=== PATIENT | female | born 1960 | race Caucasian/White ===

== ENCOUNTER 2018-09-11 16:15 | Emergency (ER) | payer BC ==
--- OUTSIDE RECORDS SUMMARY | 2018-09-11 16:26 | XMS REPORT ---
:1960 External Reference #:[id number] Author Organization [facility] 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 Active Onset: 10/02/2011 Tobacco user Rogelio Holloway RPAC Active Onset: 10/02/2011 Gastroesophageal reflux disease Rogelio Holloway RPAC Active Onset: 10/02/2011 Benign essential hypertension Rogelio Holloway RPAC Active Onset: 11/14/2014 Degenerative joint disease involving Rogelio Holloway RPAC Active multiple joints Note: lumbar, TMJ, knees,hands Onset: 10/02/2011 Hypothyroidism Rogelio Holloway RPAC Active Onset: 06/08/2015 Vitamin D deficiency Rogelio Holloway RPAC Active Onset: 11/07/2016 Hypokalemia Rogelio Holloway RPAC Active Note: noted 2014 Onset: 01/12/2018 Inflammatory polyarthropathy Rogelio Holloway RPAC Active Note: tx started 01/2018 Onset: 05/06/2018 Palpitations Rogelio Holloway RPAC Active Note: PVCs/PACs on holter Onset: 05/06/2018 Substance abuse counseling Rogelio Holloway RPAC Active Onset: 05/06/2018 Chronic obstructive pulmonary Rogelio Holloway RPAC Active disease w (acute) exacerbation Onset: 03/09/2018 Eustachian tube disorder Rogelio Holloway RPAC Inactive Inactive: 05/09/2018 Onset: 04/02/2018 Tachycardia Rogelio Holloway RPAC Inactive Inactive: 05/09/2018 Onset: 01/16/2018 Acute sinusitis Td Salguero M.D. 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 Cigarette Use Patient is a current cigarette 1/2 ppd, has purchased smoker, smokes every day e-cigarette 08/2017 ETOH Use Denies alcohol use Smoking Patient is a current smoker, smokes every day Recreational Drug Use Denies Drug Use Daily Caffeine Consumes on average 3 sodas approx 3 cans per day Exercise Type/Frequency Exercises regularly walks all day Allergies, Adverse Reactions, Alerts Date Description Reaction Status Severity Comments 01/26/2017 Morphine active 10/02/2011 Cipro Nausea & Palpitations, Ok For active Levaquin 10/02/2011 Doxycycline Vomiting active 10/02/2011 Spiriva Laryngitis active 10/02/2011 Tramadol Nausea/Light-Head active 06/05/2015 Xyzal FATIGUE/SLEEPY active Medications Medication Date Status Form Strength Qnty SIG Indications Ordering Provider Pataday 08/24 Active Solution 0.2% 2.500 1 drop both H10.9 Vasquez, /2018 ml eyes every Francisco, day M.D. Amoxicillin/Cla 08/24 Active Tablets 875-125mg 20tab take 1 R05 jackie Vasquez /2017 s tablet every Francisco, Potassium 12 hours for M.D. 10 days Guaifenesin-Cod 08/24 Active Solution 100-10mg/ 420un 10 mL PO Q 4 R05 triny Vasquez 5ML its hours prn Francisco, severe cough M.D. Breo Ellipta 05/06 Active Aerosol 200-25mcg 84uni 1 inhalation J44.1 Pedro /2017 /Inh ts every day Francisco, M.D. Verapamil HCL 04/08 Active Caps ER 120mg 90cap 1 cap by Pedro, 24HR s mouth every , day,increase M.D. d to bid 08/24/18 Klor-Con M10 02/11 Active Tablets ER 10Meq 180ta 2 tabs by Pedro, bs mouth every Francisco, day M.D. Ventolin HFA 03/06 Active Aerosol 108(90Bas 54uni 1-2 Puffs Pedro, e) ts Every 4-6 Francisco, mcg/Act Hours as M.D. Needed Zafirlukast 12/25 Active Tablets 20mg 180ta take one J45.41 Pedro, bs tablet by Francisco, mouth twice M.D. a day Theophylline ER 07/04 Active Tablets ER 300mg 180ta 1 Take By Pedro, 12HR bs Mouth Tablet Francisco, Two Times A M.D. Day Albuterol 04/08 Active Nebulizer (2.5mg/3M 250un Use 1 Vial Cecilia Vasquez L) 0.083% its (3 ML) Via Francisco, Nebulizer M.D. Every 4 Hours as Needed For Shortness Of Breath, Wheezing Levothyroxine 08/19 Active Tablets 88mcg 90tab Take One Aurelia Vasquez s Tablet By Francisco, Mouth Once M.D. Daily Ibuprofen 00 Active Tablets 800mg 1 by mouth Unknown /0000 three times a day after meals as needed Nexium 24HR 00/[address] 20mg 1 PO Daily Unknown /0000 Amoxicillin/Cla 05/06 Hx Tablets 875-125mg 60tab 1 tab by J01.90 luana Vasquez s mouth every Francisco, Potassium - 12 hours M.D. 06/05 with food /2017 Prednisone 03/11 Hx Tablets 10mg 78tab 6 tabs po X J44.1 Pedro, s 3days, 5 Francisco, - tabs poX M.D. 03/26 3days, tabs poX 3days, 3 tabs poX 5days, 2 tabs poX 5days, 1 tab po X 5days, 1/2 tab q-o-d Amoxicillin/Cla 03/09 Hx Tablets 875-125mg 20tab take 1 J44.0 luana Vasquez s tablet every Francisco, Potassium - 12 hours for M.D. 03/20 Work Note 03/09 Hx evaluated at J44.0 Vasquez primary care [facility], - on 03/09/18 M.D. 03/26 for acute /2017 illness. please excuse until 03/16/18 Amoxicillin/Cla 01/16 Hx Tablets 875-125mg 20tab take 1 J01.90 jackie Salguero s tablet every Andras, Potassium - 12 hours for M.D. 01/28 Methotrexate 01/12 Hx Tablets 2.5mg 4 tabs by Niru mouth every Marques fletcher MD 03/09 Folic Acid 01/12 Hx Tablets 1mg 1 by mouth Niru every day Marques Dawkins MD 03/09 Augmentin 10/16 Hx Tablets 875-125mg 20tab one tab by J06.9 Pedro s mouth every Francisco, 12 hours M.D. with food Prednisone 10/16 Hx Tablets 20mg 10tab take 2 J06.9 Pedro s tablets Francisco, daily for 5 M.D. days. Amoxicillin/Cla 08/21 Hx Tablets 875-125mg 60tab 1 tab by J32.9 jackie Vasquez s mouth every Francisco, Potassium 12 hours M.D. with food Prednisone 08/11 Hx Tablets 20mg 10tab take 2 Allegra s tablets MD Dmitriy daily for 5 days. Clarithromycin 07/17 Hx Tablets 500mg 20tab 1 tab by J44.0 [facility], s mouth twice Francisco, - a day M.D. 07/28 Prednisone 07/17 Hx Tablets 10mg 78tab 6 tabs po X J44.0 Vasquez, s 3days, 5 Francisco, - tabs poX M.D. 08/10 3days, tabs poX 3days, 3 tabs poX 5days, 2 tabs poX 5days, 1 tab po X 5days, 1/2 tab q-o-d Terbinafine HCL 07/17 Hx Tablets 250mg 90tab 1 tab by B35.1 Vasquez, s mouth every Francisco, - day M.D. 10/17 Work Note 07/17 Hx Evaluated at [facility], [facility] - on 07/17/17 M.D. 08/21 for acute /2017 illness. Return to work 07/21/17 Klor-Con 05/12 Hx Tablets ER 8Meq 90tab 1 by mouth Vasquez, s every day Francisco, - M.D. 05/12 Klor-Con M20 05/12 Hx Tablets ER 20Meq 30tab 1 by mouth [facility], s every day Francisco, - M.D. 07/17 Clotrimazole 03/19 Hx Lozenges 10mg 70uni 1 cristian by B37.9 Vasquez, ts mouth every Francisco, - 4 hours M.D. 07/17 Prednisone 03/19 Hx Tablets 10mg 78tab 6 tabs po X J44.1 Vasquez, s 3days, Francisco, - tabs poX M.D. 05/12 3days, tabs poX 3days, 3 tabs poX 5days, 2 tabs poX 5days, 1 tab po X 5days, 1/2 tab q-o-d Clarithromycin 03/06 Hx Tablets 500mg 60tab 1 tab by J01.90 Vasquez s mouth twice Francisco, - a day M.D. 05/12 Work Note 03/06 Hx Evaluated at [facility], [facility] - on 03/06/17 M.D. 03/19 for acute /2017 illness. Please excuse till 03/10/17 Cephalexin 01/14 Hx Tablets 500mg 30tab 1 tab (or J01.90 Pedro, s cap) by isaura Singh three M.D. times a day Work Note 01/14 Hx Evaluated on J01. Pedro01/14/17 at [facility] M.D. for acute illness. Please excuse till 01/18/17. Amlodipine 12/31 Hx Tablets 2.5mg 100ta 2 tabs by I10 Pedro, Bes bs mouth every Francisco, - day M.D. 04/02 Levaquin 12/31 Hx Tablets 500mg 10tab 1 by mouth J44.1 Pedro, s every day Francisco, - M.D. 01/20 Prednisone 11/27 Hx Tablets 10mg 78tab 6 tabs po X 493.92 Silvio s 3days, 5 Larry Lemon, tabs poX DO 3days, 4 tabs poX 3days, 3 tabs poX 5days, 2 tabs poX 5days, 1 tab po X 5days, 1/2 tab q-o-d Augmentin 11/27 Hx Tablets 875-125mg 20tab 1 by mouth Silvio s twice a day Larry Lemon, x 10 days DO Acidophilus 11/27 Hx Capsules 90cap 1 by mouth J01.90 Silvio Extra Strength s every day x Larry Lemon, 10 days DO Guaifenesin-Cod 11/27 Hx Solution 100-10mg/ 3000m 10 mL PO Q 4 J01.90 triny Anguianone /2015 5ML l hours prn Larry Lemon, DO Klor-Con 09/23 Hx Tablets ER 8Meq 90tab 1 by mouth Silvio s every day Larry Lemon, DO Bupropion HCL 07/01 Hx Tablets ER 100mg 60tab 1 tab by Silvio, ER (SR) 12HR s mouth taylor Lemon, - morning, DO 12/31 increase to twice a day in 2 wks on quit date Advair Diskus 07/01 Hx Aerosol 500-50mcg 180un 1 Inhalation Pedro, /Dose its Twice A Day Mariza Singh M.D. 05/13 Prednisone 06/13 Hx Tablets 10mg 35tab 4 tabs po x J20.9 Silvio s 3 days, 3 Larry E., - tabs po x 3 DO 07/01 days, 2 tabs /2015 po x 3 days, 1 tab po x 3 days, then 1 tab po qod Budesonide 06/05 Hx Suspension 0.5mg/2ML 60ml 1 unit dose Silvio via Larry ETrav, - nebulizer DO 06/28 twice a day /2015 Biaxin 06/04 Hx Tablets 500mg 20tab 1 tab by J20.9 Silvio s mouth twice Larry E., - a day DO 06/16 Prednisone 06/04 Hx Tablets 20mg 10tab 2 tabs by J20.9 Silvio s mouth every Larry E., - day with DO 06/13 Work Note 06/04 Hx Evaluated at J45.901 [facility] Larry Lemon, - on 06/04/16 DO 06/28 for asthma /2016 exacerbation . Please excuse from work today and tomorrow. Biaxin 04/04 Hx Tablets 500mg 20tab 1 tab by J45.41 s mouth twice Larry ETrav, - a day DO 06/04 Prednisone 04/04 Hx Tablets 20mg 10tab 2 tabs by J45.41 s mouth every Larry E., - day with DO 06/04 Work Note 04/04 Hx Evaluated at [facility] Larry Lemon, - on 04/04/16 DO 06/28 for acute /2016 illness. Please excuse till 04/08/16. Stiolto 02/28 Hx Aerosol 2.5-2.5mc 4gm 2 J45.40 Silvio Respimat g/Act inhalations Larry Lemon, - daily DO 07/01 Asmanex HFA 02/28 Hx Aerosol 200mcg/Ac 13gm 1-2 J45.40 Silvio t inhalations Larry Lemon, - twice a day DO 06/13 Meloxicam 02/28 Hx Tablets 15mg 100ta 1 tab by M25.519 Silvio, bs mouth every Larry Lemon, - day with DO 12/31 food for /2016 shoulder pain Prednisone 12/25 Hx Tablets 10mg 21tab 3 tabs for 3 J45.41 Silvio, s days, 2 tabs Larry Lemon, - for 3 days, DO 02/28 1 tab for days then 1/2 tab po every other day till finished Cephalexin 12/25 Hx Capsules 500mg 30cap 1 cap ( or J45.41 Silvio s tab) by Larry Lemon, - mouth three DO 02/28 times a day /2015 Work Note 12/25 Hx Evaluated at J45.41 [facility] Larry Lemon, - for asthma DO 03/01 exacerbation /cough. Please excuse from work till 01/01/2016 Prednisone 12/24 Hx Tablets 20mg Started with 60mg - 12/24/15, 02/28 tapered per ER Clotrimazole 10/02 Hx Lozenges 10mg 70uni 1 by mouth B37.9 Silvio ts every 4 Larry Lemon, - hours (5 per DO 12/27 day) Biaxin 10/02 Hx Tablets 500mg 20tab 1 tab by J01.90 Silvio, s mouth twice Larry Lemon, - a day DO 12/25 Cheratussin ac 10/02 Hx Syrup 100-10mg/ 8oz 1-2 R05 Silvio, 5ML teaspoons by Larry Lemon, - mouth every DO 12/25 4 hour as needed cough Omeprazole 08/[address] 20mg 90cap 1 by mouth Pedro, s every day Tori Singh Prednisone 08/09 Hx Tablets 10mg 78tab 6 tabs po X 493.92 Silvio s 3days, 5 Larry Lemon, - tabs poX DO 10/01 3days, tabs poX 3days, 3 tabs poX 5days, 2 tabs poX 5days, 1 tab po X 5days, 1/2 tab q-o-d Work Note 08/09 Hx Evaluated 269.1 Silvio today for Larry Lemon, - acute DO 12/25 exacerbation of asthma. Please excuse through 08/11/15 Montelukast 08/02 Hx Tablets 10mg 90tab 1 tab by J45.41 Silvio Sodium s mouth every Larry ETrav, - day DO 12/25 Verapamil HCL 08/02 Hx Caps ER 120mg 90cap take one I10 Vasquez, 24HR s capsule by Francisco, - mouth every M.D. Klor-Con M10 06/13 Hx Tablets ER 10Meq 14tab 1 tab by Silvio /2014 s mouth every Larry ETrav, - day DO 08/09 Vitamin D 06/13 Hx Capsules 53829Dynt 12cap 1 cap by Silvio, (Ergocalciferol /2014 s mouth every Larry ETrav, ) - week DO 04/04 Proair HFA 06/05 Hx Aerosol 108(90Bas 8.500 1-2 Silvio e) gm inhalations Larry Lemon, - mcg/Act every 4 DO 03/06 hours as needed Nabumetone 06/05 Hx Tablets 750mg 60tab take 2 719.48 Silvio, /2014 s tablets by Larry Lemon, - mouth every DO 06/19 evening with food for joint pain Advair Diskus 05/29 Hx Aerosol 500-50mcg 60uni 1 inhalation Silvio /Dose ts twice a day Larry Lemon, - DO 03/01 Nasonex 05/26 Hx Suspension 50mcg/Act 2 sprays to (b) nares - every day 12/25 Xyzal 04/25 Hx Tablets 5mg 1 tab by Unknown mouth every - day as 06/05 needed allergies Dulera 04/25 Hx Aerosol 200-5mcg/ 2 puff twice Unknown Act a day - 06/05 Proair 04/25 Hx Aerosol 108(90Bas 2 Unknown Respicl e) inhalations - mcg/Act q 4-6 hrs 06/05 prn /2014 Esomeprazole 01/[address] 20mg 1 by mouth Jo Ann, Magnesium /2014 every day Tammy Dawkins MD 08/09 Benazepril HCL 09/20 Hx Tablets 10mg 90tab 1 tab by Jo Ann s mouth every Tammy - day , 06/05 Ventolin HFA 09/20 Hx Aerosol 108mcg/Ac 8.5un Inhale One Jo Ann t its To Two Puffs Tammy - By Mouth , 05/02 Every Hours as Needed Montelukast 09/06 Hx Tablets 10mg 30tab take one Jo Ann s tablet by Tammy - mouth every , Ipratropium 11/19 Hx Solution 0.02% 150un one unit via Jo Ann, its nebulizer Tammy - four times a , 06/05 day prn Advair Diskus 10/16 Hx Aerosol 500/50 60uni 1 inhalation Jo Ann ts twice a day Tammy - as needed , 05/02 Verapamil HCL 09/11 Hx Caps ER 120mg 30cap take one Silvio 24HR s capsule by Larry Lemon - mouth every DO Predisone 00 Hx Tab 60mg, then Unknown /0000 40mg qd - 12/25 Immunizations CPT Code Status Date Vaccine Lot # [id number] Given 09/01/2009 Pneumovax Injection 28586 Given 11/08/2003 flu vaccination 45807 Given 08/30/2003 MMR Vaccine, Live, For Subcutaneous Use 88646 Given 07/27/2003 MMR Vaccine, Live, For Subcutaneous Use 11235 Given 06/21/2003 Tetnus Injection Vital Signs Date Vital Result Comment 08/24/2018 BP Systolic 150 mmHg BP Diastolic 98 mmHg Body Temperature 98.5 F Heart Rate 102 /min Respiratory Rate 18 /min Height 65 inches 5'5" Weight 224.12 lb BMI (Body Mass Index) 37.3 kg/m2 BSA (Body Surface Area) 2.08 m2 [place] body weight in kilograms 57 O2 % BldC Oximetry 91 % 05/06/2018 BP Systolic Sitting Left Arm 132 mmHg BP Diastolic Sitting Left Arm 82 mmHg Body Temperature 99.5 F Heart Rate 96 /min Respiratory Rate 24 /min Height 65 inches 5'5" Weight 220.00 lb BMI (Body Mass Index) 36.6 kg/m2 BSA (Body Surface Area) 2.06 m2 [place] body weight in kilograms 57 O2 % BldC Oximetry 98 % ra 04/02/2018 BP Systolic Sitting Left Arm 126 mmHg BP Diastolic Sitting Left Arm 80 mmHg Heart Rate 108 /min rapid Respiratory Rate 18 /min Height 65 inches 5'5" Weight 213.00 lb BMI (Body Mass Index) 35.4 kg/m2 BSA (Body Surface Area) 2.03 m2 [place] body weight in kilograms 57 O2 % BldC Oximetry 95 % ra 03/09/2018 BP Systolic Sitting Left Arm 147 mmHg BP Diastolic Sitting Left Arm 89 mmHg Body Temperature 100.2 F Heart Rate 110 /min Respiratory Rate 20 /min Height 65 inches 5'5" Weight 217.00 lb BMI (Body Mass Index) 36.1 kg/m2 BSA (Body Surface Area) 2.05 m2 [place] body weight in kilograms 57 O2 % BldC Oximetry 93 % 01/16/2018 BP Systolic Sitting Left Arm 118 mmHg BP Diastolic Sitting Left Arm 62 mmHg Body Temperature 99.4 F Heart Rate 110 /min Height 65 inches 5'5" [place] body weight in kilograms 57 O2 % BldC Oximetry 94 % 12/22/2017 BP Systolic Sitting Right Arm 146 mmHg BP Diastolic Sitting Right Arm 89 mmHg Heart Rate 105 /min Respiratory Rate 24 /min Height 65 inches 5'5" Weight 227.00 lb BMI (Body Mass Index) 37.8 kg/m2 BSA (Body Surface Area) 2.09 m2 [place] body weight in kilograms 57 11/17/2017 BP Systolic Sitting Left Arm 140 mmHg BP Diastolic Sitting Left Arm 86 mmHg Heart Rate 120 /min Respiratory Rate 18 /min Weight 230.00 lb O2 % BldC Oximetry 93 % 10/16/2017 BP Systolic Sitting Right Arm 120 mmHg BP Diastolic Sitting Right Arm 82 mmHg Heart Rate 105 /min Respiratory Rate 24 /min Height 65 inches 5'5" Weight 224.00 lb BMI (Body Mass Index) 37.3 kg/m2 BSA (Body Surface Area) 2.08 m2 [place] body weight in kilograms 57 O2 % BldC Oximetry 95 % ra 08/21/2017 BP Systolic Sitting Right Arm 122 mmHg BP Diastolic Sitting Right Arm 80 mmHg Body Temperature 98.1 F Heart Rate 97 /min Height 65 inches 5'5" Weight 226.00 lb BMI (Body Mass Index) 37.6 kg/m2 BSA (Body Surface Area) 2.08 m2 [place] body weight in kilograms 57 O2 % BldC Oximetry 95 % 07/17/2017 BP Systolic 114 mmHg BP Diastolic 74 mmHg Body Temperature 98.0 F Heart Rate 105 /min Respiratory Rate 12 /min Height 65 inches 5'5" Weight 215.00 lb BMI (Body Mass Index) 35.8 kg/m2 BSA (Body Surface Area) 2.04 m2 [place] body weight in kilograms 57 O2 % BldC Oximetry 90 % 05/13/2017 BP Systolic Sitting Right Arm 120 mmHg BP Diastolic Sitting Right Arm 86 mmHg Heart Rate 109 /min Respiratory Rate 16 /min Height 65 inches 5'5" Weight 223.00 lb BMI (Body Mass Index) 37.1 kg/m2 BSA (Body Surface Area) 2.07 m2 [place] body weight in kilograms 57 O2 % BldC Oximetry 94 % 03/25/2017 BP Systolic Sitting Left Arm 144 mmHg BP Diastolic Sitting Left Arm 92 mmHg Heart Rate 96 /min Respiratory Rate 17 /min Height 65 inches 5'5" Weight 218.00 lb BMI (Body Mass Index) 36.3 kg/m2 BSA (Body Surface Area) 2.05 m2 O2 % BldC Oximetry 95 % Room Air 03/19/2017 BP Systolic Sitting Right Arm 132 mmHg BP Diastolic Sitting Right Arm 80 mmHg Heart Rate 102 /min Height 65 inches 5'5" Weight 222.38 lb BMI (Body Mass Index) 37.0 kg/m2 BSA (Body Surface Area) 2.07 m2 O2 % BldC Oximetry 95 % 03/06/2017 BP Systolic 133 mmHg BP Diastolic 71 mmHg Body Temperature 98.3 F Heart Rate 94 /min Height 65 inches 5'5" Weight 225.00 lb BMI (Body Mass Index) 37.4 kg/m2 BSA (Body Surface Area) 2.08 m2 O2 % BldC Oximetry 95 % 01/14/2017 BP Systolic 158 mmHg BP Diastolic 78 mmHg Body Temperature 98.2 F Heart Rate 95 /min Respiratory Rate 20 /min Height 65 inches 5'5" Weight 224.38 lb BMI (Body Mass Index) 37.3 kg/m2 BSA (Body Surface Area) 2.08 m2 O2 % BldC Oximetry 97 % 12/31/2016 BP Systolic 156 mmHg BP Diastolic 90 mmHg Body Temperature 98.4 F Heart Rate 104 /min Height 65 inches 5'5" Weight 225.00 lb BMI (Body Mass Index) 37.4 kg/m2 BSA (Body Surface Area) 2.08 m2 11/27/2016 BP Systolic 110 mmHg BP Diastolic 76 mmHg Body Temperature 98.6 F Heart Rate 99 /min Height 65 inches 5'5" Weight 223.00 lb BMI (Body Mass Index) 37.1 kg/m2 BSA (Body Surface Area) 2.07 m2 O2 % BldC Oximetry 96 % 06/04/2016 BP Systolic Sitting Right Arm 144 mmHg BP Diastolic Sitting Right Arm 90 mmHg Body Temperature 99.1 F Heart Rate 64 /min Height 65 inches 5'5" Weight 227.00 lb BMI (Body Mass Index) 37.8 kg/m2 BSA (Body Surface Area) 2.09 m2 O2 % BldC Oximetry 97 % 04/04/2016 BP Systolic 128 mmHg BP Diastolic 78 mmHg Body Temperature 98.2 F Respiratory Rate 102 /min Height 65 inches 5'5" Weight 225.00 lb BMI (Body Mass Index) 37.4 kg/m2 BSA (Body Surface Area) 2.08 m2 O2 % BldC Oximetry 95 % 02/29/2016 BP Systolic 142 mmHg BP Diastolic 98 mmHg Heart Rate 101 /min Height 65 inches 5'5" Weight 222.00 lb BMI (Body Mass Index) 36.9 kg/m2 BSA (Body Surface Area) 2.07 m2 12/25/2015 BP Systolic Sitting Left Arm 132 mmHg BP Diastolic Sitting Left Arm 78 mmHg Height 65 inches 5'5" Weight 217.25 lb BMI (Body Mass Index) 36.1 kg/m2 BSA (Body Surface Area) 2.05 m2 10/02/2015 BP Systolic 124 mmHg BP Diastolic 78 mmHg Body Temperature 98.0 F Heart Rate 101 /min Respiratory Rate 18 /min Height 65 inches 5'5" Weight 223.00 lb BMI (Body Mass Index) 37.1 kg/m2 BSA (Body Surface Area) 2.07 m2 O2 % BldC Oximetry 95 % Ra 08/09/2015 BP Systolic 134 mmHg BP Diastolic 74 mmHg Heart Rate 98 /min Height 65 inches 5'5" Weight 224.00 lb BMI (Body Mass Index) 37.3 kg/m2 BSA (Body Surface Area) 2.08 m2 O2 % BldC Oximetry 93 % 06/05/2015 BP Systolic 122 mmHg BP Diastolic 82 mmHg Height 65 inches 5'5" Weight 221.00 lb BMI (Body Mass Index) 36.8 kg/m2 BSA (Body Surface Area) 2.06 m2 01/12/2015 BP Systolic 136 mmHg BP Diastolic 80 mmHg Body Temperature 98.7 F Height 65 inches 5'5" Weight 218.00 lb O2 % BldC Oximetry 94 % 11/29/2014 BP Systolic 140 mmHg BP Diastolic 86 mmHg Body Temperature 99.1 F Heart Rate 118 /min Respiratory Rate 20 /min Weight 214.00 lb O2 % BldC Oximetry 95 % 07/04/2014 BP Systolic 154 mmHg BP Diastolic 92 mmHg Body Temperature 98.6 F Height 65 inches 5'5" Weight 212.00 lb 02/28/2014 BP Systolic 130 mmHg BP Diastolic 82 mmHg Body Temperature 99.0 F Height 65 inches 5'5" Weight 212.00 lb 01/03/2014 BP Systolic 142 mmHg BP Diastolic 80 mmHg Body Temperature 99.1 F Height 65 inches 5'5" Weight 216.00 lb 12/07/2013 BP Systolic 130 mmHg BP Diastolic 74 mmHg Body Temperature 98.5 F Height 65 inches 5'5" Weight 213.00 lb 11/01/2013 BP Systolic 134 mmHg BP Diastolic 80 mmHg Body Temperature 99.4 F Height 65 inches 5'5" Weight 212.00 lb 09/20/2013 BP Systolic 148 mmHg BP Diastolic 90 mmHg Height 65 inches 5'5" Weight 216.00 lb 08/27/2013 BP Systolic 128 mmHg BP Diastolic 76 mmHg Body Temperature 98.4 F Height 65 inches 5'5" Weight 210.00 lb O2 % BldC Oximetry 92 % 08/23/2013 BP Systolic 128 mmHg BP Diastolic 80 mmHg Body Temperature 98.2 F Height 65 inches 5'5" Weight 210.00 lb 06/23/2013 BP Systolic 150 mmHg BP Diastolic 100 mmHg Body Temperature 98.1 F Height 65 inches 5'5" Weight 215.00 lb 03/15/2013 BP Systolic 134 mmHg BP Diastolic 80 mmHg Body Temperature 98.5 F Height 65 inches 5'5" Weight 222.00 lb O2 % BldC Oximetry 95 % 02/04/2013 BP Systolic 140 mmHg BP Diastolic 76 mmHg Height 65 inches 5'5" Weight 222.00 lb 12/02/2012 BP Systolic 122 mmHg BP Diastolic 74 mmHg Weight 218.00 lb O2 % BldC Oximetry 96 % 11/19/2012 BP Systolic 148 mmHg BP Diastolic 82 mmHg Weight 218.00 lb 11/19/2012 O2 % BldC Oximetry 92 % 11/19/2012 Body Temperature 98.9 F 10/29/2012 BP Systolic 148 mmHg BP Diastolic 90 mmHg Body Temperature 99.0 F Weight 218.00 lb 05/27/2012 BP Systolic 138 mmHg BP Diastolic 90 mmHg Weight 213.00 lb 02/10/2012 BP Systolic 124 mmHg BP Diastolic 80 mmHg Height 65 inches 5'5" Weight 212.00 lb 01/21/2012 BP Systolic 136 mmHg BP Diastolic 74 mmHg Body Temperature 99.7 F Height 65 inches 5'5" Weight 217.00 lb 12/26/2011 BP Systolic 138 mmHg BP Diastolic 74 mmHg Height 66 inches 5'6" Weight 214.00 lb 12/05/2011 BP Systolic 138 mmHg BP Diastolic 84 mmHg Body Temperature 98.8 F Height 66 inches 5'6" Weight 217.00 lb 10/02/2011 BP Systolic 128 mmHg BP Diastolic 80 mmHg Body Temperature 99.3 F Height 66 inches 5'6" Weight 207.00 lb Results Test Date Test Result H/L Range Note Electrolyte Panel 03/26/2018 Sodium 142 mmol/L 136-145 Potassium 3.9 mmol/L 3.5-5.1 Chloride 107 mmol/L 98-107 Carbon Dioxide 31 mmol/L 21-32 Anion Gap 4 mEq/L Low 8-16 Laboratory test finding 03/26/2018 Urine Potassium Random 45.5 mEq/L TSH Reflex FT4 and/or FT3 2.39 uIU/mL 0.30-4.20 Globulin Ser Calc-mCnc 03/24/2018 Globulin Ser Calc-mCnc 3.5 1.9-4.3 Lymphocytes/leuk NFr Bld 03/24/2018 Lymphocytes/leuk NFr 25.9 20.0-42.0 Auto Bld Auto Monocytes/leuk NFr Bld 03/24/2018 Monocytes/leuk NFr Bld 6.2 4.3-13.2 Auto Auto Neutrophils # Bld Auto 03/24/2018 Neutrophils # Bld Auto 9.09 High 1.8- 7.0 Neutrophils/leuk NFr Bld 03/24/2018 Neutrophils/leuk NFr 66.8 40.4-72.8 Auto Bld Auto Potassium SerPl-sCnc 03/24/2018 Potassium SerPl-sCnc 3.0 Low 3.5-5.1 RDW RBC Auto 03/24/2018 RDW RBC Auto 47.3 High 3-47 RDW RBC Auto-Rto 03/24/2018 RDW RBC Auto-Rto 15.6 High 11.7-14.4 Serum carbon dioxide 03/24/2018 Serum carbon dioxide 25 21-32 measurement measurement Serum or plasma albumin 03/24/2018 Serum or plasma albumin 3.3 Low 3.4- 5.0 measurement measurement (mass/volume) (mass/volume) Serum or plasma alkaline 03/24/2018 Serum or plasma 67 45-117 phosphatase measurement alkaline phosphatase ( measurement (enzymatic activity/volume) Serum or plasma 03/24/2018 Serum or plasma 11 Low 15-37 aspartate aspartate aminotransferase measure aminotransferase measurement (enzymatic activity/volume) Serum or plasma calcium 03/24/2018 Serum or plasma calcium 8.6 8.5-10.1 measurement measurement (mass/volume) (mass/volume) Serum or plasma 03/24/2018 Serum or plasma 0.7 0.6-1.3 creatinine measurement creatinine measurement (mass/volum (mass/volume) Serum or plasma glucose 03/24/2018 Serum or plasma glucose 150 High 74- 106 measurement measurement (mass/volume) (mass/volume) Serum or plasma protein 03/24/2018 Serum or plasma protein 6.8 6.4-8.2 measurement measurement (mass/volume) (mass/volume) Serum or plasma total 03/24/2018 Serum or plasma total 0.3 0.2-1.0 bilirubin measurement bilirubin measurement (mass/ (mass/volume) Serum or plasma urea 03/24/2018 Serum or plasma urea 13 7-18 nitrogen measurement nitrogen measurement (mass/vo (mass/volume) Serum sodium measurement 03/24/2018 Serum sodium 145 136-145 measurement Unloinc 03/24/2018 Unloinc See Note 1 Comprehensive Metabolic 03/24/2018 Glucose 150 mg/dL High 74-106 2 Panel BUN 13 mg/dL 7-18 2 Creatinine 0.7 mg/dL 0.6-1.3 2 Glom Filtration Rate, Estimate >60 mL/min >60 2 If >60 mL/min >60 2, 3 BUN/Creat 18.5 ratio 2 Sodium 145 mmol/L 136-145 2 Potassium 3.0 mmol/L Low 3.5-5.1 2 Chloride 109 mmol/L High 98-107 2 Carbon Dioxide 25 mmol/L 21-32 2 Anion Gap 11 mEq/L 8-16 2 Calcium 8.6 mg/dL 8.5-10.1 2 Total Protein 6.8 g/dL 6.4-8.2 2 Albumin 3.3 g/dL Low 3.4-5.0 2 Globulin 3.5 g/dL 1.9-4.3 2 Alb/Glob 0.9 ratio 2 Bilirubin,Total 0.3 mg/dL 0.2-1.0 2 Sgot/Ast 11 U/L Low 15-37 2, 4 SGPT/Alt 17 U/L 12-78 2 Alkaline Phosphatase 67 U/L 45-117 2 Laboratory test finding 03/24/2018 Magnesium 2.0 mg/dL 1.8-2.4 2 Troponin-I < 0.015 ng/mL 2, 5 CBS W/Automated Diff 03/24/2018 White Blood Count 13.6 K/uL High 3.1-10.7 2 Red Blood Count 5.40 M/uL 3.90-5.40 2 Hemoglobin 15.0 gm/dL 11.6-15.8 2 Hematocrit 45.2 % 36.0-46.1 2 Mean Cell Volume 83.7 fl 80.9-99.0 2 Mean Corpuscular HGB 27.8 pg 25.9-32.7 2 Mean Corpuscular HGB Conc 33.2 g/dL 30.8-34.3 2 Platelet Count 235 K/uL 155-360 2 Red Cell Distri Width SD 47.3 fl High 3-47 2 Red Cell Distri Width %CV 15.6 % High 11.7-14.4 2 Mean Platelet Volume 12.3 fL 8.9-12.4 2 Neut% 66.8 % 40.4-72.8 2 Lymph % 25.9 % 20.0-42.0 2 [place] % 6.2 % 4.3-13.2 2 Eo% 0.9 % 0.0-6.6 2 Bas% 0.2 % 0.0-1.1 2 Neut# 9.09 K/uL High 1.8-7.0 2 Lymph # 3.53 K/uL 1.0-4.0 2 [place] # 0.84 K/uL 0.3-0.9 2 Eos # 0.12 K/uL 0.0-0.5 2 Baso # 0.03 K/uL 0.0-0.1 2 Slide Review 03/24/2018 Slide Review (SEE NOTE) 2, 6 Laboratory test 03/24/2018 D-Dimer, Quantitative < 0.27 ug/mL 2, 7 finding Alt SerPl-cCnc 03/24/2018 Alt SerPl-cCnc 17 12-78 Albumin/Glob SerPl 03/24/2018 Albumin/Glob SerPl 0.9 Anion Gap SerPl-sCnc 03/24/2018 Anion Gap SerPl-sCnc 11 8-16 Automated blood 03/24/2018 Automated blood 0.03 0.0-0.1 basophil count basophil count (count/volume) (count/volume) Automated blood 03/24/2018 Automated blood 0.12 0.0-0.5 eosinophil count eosinophil count Automated blood 03/24/2018 Automated blood 45.2 36.0-46. hematocrit (volume hematocrit (volume 1 fraction) fraction) Automated blood 03/24/2018 Automated blood 3.53 1.0-4.0 lymphocyte count lymphocyte count (number/volume) (number/volume) Eosinophil/leuk NFr 03/24/2018 Eosinophil/leuk NFr 0.9 0.0-6.6 Bld Auto Bld Auto Chloride SerPl-sCnc 03/24/2018 Chloride SerPl-sCnc 109 High 98-107 Blood monocytes 03/24/2018 Blood monocytes 0.84 0.3-0.9 automated count automated count (number/volume) (number/volume) Blood leukocytes 03/24/2018 Blood leukocytes 13.6 High 3.1-10.7 automated count automated count (number/volume) (number/volume) Blood hemoglobin 03/24/2018 Blood hemoglobin 15.0 11.6-15. measurement measurement 8 (mass/volume) (mass/volume) Blood erythrocytes 03/24/2018 Blood erythrocytes 5.40 3.90-5.4 automated count automated count 0 (number/volume) (number/volume) Automated blood 03/24/2018 Automated blood 235 155-360 platelet count platelet count Automated blood 03/24/2018 Automated blood 12.3 8.9-12.4 platelet mean volume platelet mean volume measurement measurement Automated erythrocyte 03/24/2018 Automated erythrocyte 27.8 25.9-32. mean corpuscular mean corpuscular 7 hemoglobin hemoglobin (mass per erythrocyte) Automated erythrocyte 03/24/2018 Automated erythrocyte 33.2 30.8-34. mean corpuscular mean corpuscular 3 hemoglobin hemoglobin concentration measurement (mass/volume) Automated erythrocyte 03/24/2018 Automated erythrocyte 83.7 80.9-99. mean corpuscular mean corpuscular 0 volume volume BUN/Creat SerPl 03/24/2018 BUN/Creat SerPl 18.5 Basophils/leuk NFr 03/24/2018 Basophils/leuk NFr Bld 0.2 0.0-1.1 Bld Auto Auto Electrolyte Panel 02/11/2018 Sodium 140 mmol/L 136-145 8 Potassium 3.4 mmol/L Low 3.5-5.1 8 Chloride 107 mmol/L 98-107 8 Carbon Dioxide 31 mmol/L 21-32 8 Anion Gap 2 mEq/L Low 8-16 8 Basic Metabolic Panel 08/21/2017 Glucose 120 mg/dL High 74-106 BUN 11 mg/dL 7-18 Creatinine 0.8 mg/dL 0.6-1.3 Glom Filtration Rate, Estimate >60 mL/min >60 If >60 mL/min >60 9 BUN/Creat 13.7 ratio Sodium 143 mmol/L 136-145 Potassium 3.4 mmol/L Low 3.5-5.1 Chloride 108 mmol/L High 98-107 Carbon Dioxide 29 mmol/L 21-32 Anion Gap 6 mEq/L Low 8-16 Calcium 8.4 mg/dL Low 8.5-10.1 Laboratory test finding 08/21/2017 C-Reactive Protein,Quant 16.3 mg/L High <3.0 Laboratory test finding 08/21/2017 Sedimentation Rate 4 mm/hr 0-30 10 Uric Acid 5.8 mg/dL 2.6-6.0 Total Protein 6.7 g/dL 6.4-8.2 Albumin 3.1 g/dL Low 3.4-5.0 Alb/Glob 0.9 ratio Alkaline Phosphatase 76 U/L 45-117 Rheumatoid Factor Screen < 10.0 IU/mL 0.0-15.0 Globulin 3.6 g/dL 1.9-4.3 Antinuclear Antibodies, Ifa Negative . 11 Lyme Total AB/Reflex To WB < 0.91 ISR 0.00-0.90 12 CBS W/Automated Diff 08/08/2017 White Blood Count 10.4 K/uL 3.1-10.7 13 Red Blood Count 5.27 M/uL 3.90-5.40 13 Hemoglobin 14.7 gm/dL 11.6-15.8 13 Hematocrit 44.8 % 36.0-46.1 13 Mean Cell Volume 85.0 fl 80.9-99.0 13 Mean Corpuscular HGB 27.9 pg 25.9-32.7 13 Mean Corpuscular HGB Conc 32.8 g/dL 30.8-34.3 13 Platelet Count 226 K/uL 150-400 13 Red Cell Distri Width SD 45.8 fl 3-47 13 Red Cell Distri Width %CV 14.9 % High 11.7-14.4 13 Mean Platelet Volume 11.7 fL 8.9-12.4 13 Neut% 89.7 % High 40.4-72.8 13 Lymph % 6.5 % Low 20.0-42.0 13 [place] % 3.6 % Low 4.3-13.2 13 Eo% 0.1 % 0.0-6.6 13 Bas% 0.1 % 0.0-1.1 13 Neut# 9.35 K/uL High 1.8-7.0 13 Lymph # 0.68 K/uL Low 1.0-4.0 13 [place] # 0.37 K/uL 0.3-0.9 13 Eos # 0.01 K/uL 0.0-0.5 13 Baso # 0.01 K/uL 0.0-0.1 13 Basic Metabolic Panel 08/08/2017 Glucose 111 mg/dL High 74-106 13 BUN 13 mg/dL 7-18 13 Creatinine 0.7 mg/dL 0.6-1.3 13 Glom Filtration Rate, Estimate >60 mL/min >60 13 If >60 mL/min >60 13, 14 BUN/Creat 18.5 ratio 13 Sodium 142 mmol/L 136-145 13 Potassium 3.6 mmol/L 3.5-5.1 13 Chloride 105 mmol/L 98-107 13 Carbon Dioxide 32 mmol/L 21-32 13 Anion Gap 5 mEq/L Low 8-16 13 Calcium 9.1 mg/dL 8.5-10.1 13 Slide Review 08/08/2017 Slide Review . 13, 15 Laboratory test finding 05/12/2017 Thyroid Stim Hormone 0.92 uIU/mL 0.30- 4.20 16 Basic Metabolic Panel 05/12/2017 Glucose 94 mg/dL 74-106 16 BUN 12 mg/dL 7-18 16 Creatinine 0.7 mg/dL 0.6-1.3 16 Glom Filtration Rate, Estimate >60 mL/min >60 16 If >60 mL/min >60 16, 17 BUN/Creat 17.1 ratio 16 Sodium 143 mmol/L 136-145 16 Potassium 3.2 mmol/L Low 3.5-5.1 16 Chloride 107 mmol/L 98-107 16 Carbon Dioxide 30 mmol/L 21-32 16 Anion Gap 6 mEq/L Low 8-16 16 Calcium 8.8 mg/dL 8.5-10.1 16 CBS W/Automated Diff 05/12/2017 White Blood Count 8.2 K/uL 3.1-10.7 16 Red Blood Count 4.99 M/uL 3.90-5.40 16 Hemoglobin 14.1 gm/dL 11.6-15.8 16 Hematocrit 42.2 % 36.0-46.1 16 Mean Cell Volume 84.6 fl 80.9-99.0 16 Mean Corpuscular HGB 28.3 pg 25.9-32.7 16 Mean Corpuscular HGB Conc 33.4 g/dL 30.8-34.3 16 Platelet Count 200 K/uL 150-400 16 Red Cell Distri Width SD 42.4 fl 3-47 16 Red Cell Distri Width %CV 14.1 % 11.7-14.4 16 Mean Platelet Volume 12.7 fL High 8.9-12.4 16 Neut% 66.9 % 40.4-72.8 16 Lymph % 23.3 % 20.0-42.0 16 [place] % 6.6 % 4.3-13.2 16 Eo% 2.7 % 0.0-6.6 16 Bas% 0.5 % 0.0-1.1 16 Neut# 5.47 K/uL 1.8-7.0 16 Lymph # 1.90 K/uL 1.0-4.0 16 [place] # 0.54 K/uL 0.3-0.9 16 Eos # 0.22 K/uL 0.0-0.5 16 Baso # 0.04 K/uL 0.0-0.1 16 LDL Cholesterol Profile 05/12/2017 Cholesterol 172 mg/dL <200 16, 18 Triglycerides 141 mg/dL <150 16, 19 HDL Cholesterol 35 mg/dL Low >40 16, 20 LDL-Cholesterol 109 mg/dL < 100 16, 21 Laboratory test finding 11/07/2016 Potassium 3.1 mmol/L Low 3.5-5.1 22 Basic Metabolic Panel 09/20/2016 Glucose 136 mg/dL High 74-106 23 BUN 11 mg/dL 7-18 23 Creatinine 0.7 mg/dL 0.6-1.3 23 Glom Filtration Rate, Estimate >60 mL/min >60 23 If >60 mL/min >60 23, 24 BUN/Creat 15.7 ratio 23 Sodium 142 mmol/L 136-145 23 Potassium 3.0 mmol/L Low 3.5-5.1 23 Chloride 105 mmol/L 98-107 23 Carbon Dioxide 30 mmol/L 21-32 23 Anion Gap 7 mEq/L Low 8-16 23 Calcium 8.5 mg/dL 8.5-10.1 23 Laboratory test 09/20/2016 Vitamin D,25-Hydroxy 18.4 ng/mL Low 30.0-100.0 23, 25 finding Laboratory test 09/20/2016 Thyroid Stim Hormone 3.30 uIU/mL 0.30-4.20 23 finding Laboratory test 06/06/2015 Vitamin D,25-Hydroxy 17.1 ng/mL Low 30.0-100.0 26 finding Basic Metabolic 06/06/2015 Glucose 90 mg/dL 74-106 Panel BUN 12 mg/dL 7-18 Creatinine 0.9 mg/dL 0.6-1.3 Glom Filtration Rate, Estimate >60 mL/min >60 If >60 mL/min >60 27 BUN/Creat 13.3 ratio Sodium 139 mmol/L 136-145 Potassium 3.3 mmol/L Low 3.5-5.1 Chloride 106 mmol/L 98-107 Carbon Dioxide 30 mmol/L 21-32 Anion Gap 3 mEq/L Low 8-16 Calcium 8.8 mg/dL 8.5-10.1 LDL Cholesterol Profile 06/06/2015 Cholesterol 169 mg/dL < 200 28 Triglycerides 211 mg/dL < 150 29 HDL Cholesterol 31 mg/dL > 40 30 LDL-Cholesterol 96 mg/dL < 100 31 Laboratory test finding 06/06/2015 Uric Acid 5.8 mg/dL 2.6-6.0 Total Protein 7.3 g/dL 6.4-8.2 Albumin 4.0 g/dL 3.4-5.0 Globulin 3.3 g/dL 1.9-4.3 Alb/Glob 1.2 ratio Alkaline Phosphatase 105 U/L 45-117 Rheumatoid Factor Screen < 10.0 IU/mL 0.0-15.0 Antinuclear Antibodies, Ifa Negative . 32 Lyme Disease Antibody,QT,Igm <0.80 index 0.00-0.79 33 Sedimentation Rate 3 mm/hr 0-30 Laboratory test finding 06/06/2015 C-Reactive Protein,Quant 9.6 mg/L < 3.0 CBC W/Automated Diff 05/29/2015 White Blood Count 8.3 K/uL 3.1-10.7 Red Blood Count 5.41 M/uL High 3.90-5.40 Hemoglobin 14.9 gm/dL 11.6-15.8 Hematocrit 44.4 % 36.0-46.1 Mean Cell Volume 82.1 fl 80.9-99.0 Mean Corpuscular HGB 27.5 pg 25.9-32.7 Mean Corpuscular HGB Conc 33.6 g/dL 30.8-34.3 Platelet Count 237 K/uL 155-360 Red Cell Distri Width SD 39.6 fl 3-47 Red Cell Distri Width %CV 13.3 % 11.7-14.4 Mean Platelet Volume 12.5 fL High 8.9-12.4 Neut% 69.9 % 40.4-72.8 Lymph % 19.3 % 17.0-46.1 [place] % 7.5 % 4.3-13.2 Eo% 2.9 % 0.0-6.6 Bas% 0.4 % 0.0-1.1 Neut# 5.81 K/uL 1.0-7.0 Lymph # 1.60 K/uL Low 1.8-7.0 [place] # 0.62 K/uL 0.3-0.9 Eos # 0.24 K/uL 0.0-0.5 Baso # 0.03 K/uL 0.0-0.1 Laboratory test finding 05/29/2015 TSH Reflex FT4 and/or 0.90 uIU/mL 0.36 -3.74 34 FT3 CBC Auto Diff 09/20/2013 Abs Basophils 0.1 10^3/uL 0-0.2 Abs Eosinophils 0.2 10^3/uL 0-0.6 Abs Lymphocytes 1.6 10^3/uL 1.0-4.8 Abs Monocytes 0.5 10^3/uL 0-0.8 Abs Neutrophils 6.1 10^3/uL 1.5-7.7 Abs Nucleated RBC 0 10^3/uL Basophil % 0.6 % 0-2 Eosinophil % 2.2 % 0-6 Granulocyte % 71.9 % 38-83 Hematocrit 42 % 35-47 Hemoglobin 13.5 g/dL 12.0-16.0 Lymphocyte % 19.1 % Low 25-47 Mean Corpuscular HGB Conc 32 g/dL 31-36 Mean Corpuscular Hemoglobin 27 pg 27-31 Mean Corpuscular Volume 83 fL 80-97 Mean Platelet Volume 10 um3 7.4-10.4 Monocyte % 6.2 % 1-9 Nucleated Red Blood Cells % 0.1 Platelet Count 209 10^3/uL 150-450 Red Blood Count 5.08 10^6/uL 4.0-5.4 Red Cell Distribution Width 15 % 10.5-15 White Blood Count 8.5 10^3/uL 4.8-10.8 Laboratory test 09/20/2013 TSH (Thyroid 1.64 miu/mL 0.34-5.60 finding Stimulating Horm) Laboratory test 09/20/2013 Cytology Pap See Note 35 finding Lipid Profile 09/20/2013 Cholesterol 197 mg/dL Less than 200 (Trig/Chol/HDL) Cholesterol/HDL Ratio 6.2 Average High 1-4.44 HDL Cholesterol 32 mg/dL Low 40-60 36 LDL Cholesterol 135.6 High Less Than 100 37 Triglycerides 147 mg/dL 40-200 Comp Metabolic Panel 09/20/2013 Albumin 3.5 g/dL Low 3.6-5.4 Albumin/Globulin Ratio 1.4 1-3 Alkaline Phosphatase 82 U/L 30-110 Alt 17 U/L 14-54 Anion Gap 4.0 mmol/L 2-11 Ast 18 U/L 12-42 BUN/Creatinine Ratio 13.3 8-20 Blood Urea Nitrogen 8 mg/dL 6-24 Calcium 8.8 mg/dL 8.1-9.9 Chloride 106 mmol/L 101-111 Co2 Carbon Dioxide 30.0 mmol/L 22-32 Creatinine 0.60 mg/dL 0.50-1.40 Egfr 135.0 >60 38 Egfr Non- 105.0 >60 Globulin 2.5 g/dL 2-4 Glucose 102 mg/dL High 70-100 Potassium 4.0 mmol/L 3.5-5.0 Sodium 140 mmol/L 133-145 Total Bilirubin 0.4 mg/dL 0.4-1.5 Total Protein 6.0 g/dL Low 6.2-8.1 Laboratory test finding 10/01/2012 TSH (Thyroid Stimulating 3.05 MIU/ML 0.34-5.60 Horm) Basic Metabolic Panel 10/01/2012 Anion Gap 6.0 mmol/L 2-11 BUN/Creatinine Ratio 18.0 8-20 Blood Urea Nitrogen 9 mg/dL 6-24 Calcium 8.9 mg/dL 8.1-9.9 Chloride 106 mmol/L 101-111 Co2 Carbon Dioxide 29.0 mmol/L 22-32 Creatinine 0.50 mg/dL 0.50-1.40 Egfr 167.3 >60 39 Egfr Non- 130.1 >60 Glucose 95 mg/dL 70-100 Potassium 3.8 mmol/L 3.5-5.0 Sodium 141 mmol/L 133-145 CBC Auto Diff 10/01/2012 Abs Basophils 0.1 10^3/uL 0-0.2 Abs Eosinophils 0.1 10^3/uL 0-0.6 Abs Lymphocytes 1.6 10^3/uL 1.0-4.8 Abs Monocytes 0.6 10^3/uL 0-0.8 Abs Neutrophils 6.2 10^3/uL 1.5-7.7 Abs Nucleated RBC 0.01 10^3/uL Basophil % 0.8 % 0-2 Eosinophil % 1.5 % 0-6 Granulocyte % 72.5 % 38-83 Hematocrit 43 % 35-47 Hemoglobin 14.5 g/dL 12.0-16.0 Lymphocyte % 18.6 % Low 25-47 Mean Corpuscular HGB Conc 34 g/dL 31-36 Mean Corpuscular Hemoglobin 28 pg 27-31 Mean Corpuscular Volume 83 fL 80-97 Mean Platelet Volume 11 um3 High 7.4-10.4 Monocyte % 6.6 % 1-9 Nucleated Red Blood Cells % 0.1 Platelet Count 202 10^3/uL 150-450 Red Blood Count 5.23 10^6/uL 4.0-5.4 Red Cell Distribution Width 14 % 10.5-15 White Blood Count 8.6 10^3/uL 4.8-10.8 1 Instrument flagged sample for slide review. Less than 10% Bands seen, no other immature WBC's seen. RBC morphology essentially normal. Platelet estimate= Normal 2 BEEN SICK FOR AWHILE HR DROPS 3 Note: Persistent reduction for 3 months or more in an eGFR <60 mL/min/1.73 m2 defines CKD. Patients with eGFR values >/=60 mL/min/1.73 m2 may also have CKD if evidence of persistent proteinuria is present. The original MDRD equation for estimated GFR is not valid for patients less than 18 years of age. Additional information may be found at www.[email or web address]. 4 Values below the stated reference ranges of AST and ALT can be seen in normal populations. Clinical correlation is suggested. 5 0.0 - 0.045 ng/mL: Normal 0.046 - 0.5 ng/mL: Suggestive 0.6 - 1.5 ng/mL: Consistent 6 Instrument flagged sample for slide review. Less than 10% Bands seen, no other immature WBC's seen. RBC morphology essentially normal. Platelet estimate=NORMAL 7 <=0.49 ug/mL - Low likelihood of DIC, DVT or Pulmonary Embolism >0.49 ug/mL - Additional testing should be done to rule out DIC, DVT, or Pulmonary embolism as clinically indicated. ([facility] has established a 97.89% negative predictive value for thrombotic disease when a cutoff value of 0.5 ug/mL is used.) 8 E87.6 9 Note: Persistent reduction for 3 months or more in an eGFR <60 mL/min/1.73 m2 defines CKD. Patients with eGFR values >/=60 mL/min/1.73 m2 may also have CKD if evidence of persistent proteinuria is present. The original MDRD equation for estimated GFR is not valid for patients less than 18 years of age. Additional information may be found at [email or web address]. 10 Method: Sediplast Modified Westergren 11 Negative <1:80 Borderline 1:80 Positive >1:80 12 Negative <0.91 Equivocal 0.91 - 1.09 Positive >1.09 Performed at: RN - [facility] [address] [id number] [place]: Savannah Linda MD, Phone: [phone] [id number] 14 Note: Persistent reduction for 3 months or more in an eGFR <60 mL/min/1.73 m2 defines CKD. Patients with eGFR values >/=60 mL/min/1.73 m2 may also have CKD if evidence of persistent proteinuria is present. The original MDRD equation for estimated GFR is not valid for patients less than 18 years of age. Additional information may be found at www.[email or web address]. 15 Instrument flagged sample for slide review. Less than 10% Bands seen, no other immature WBC's seen. RBC morphology essentially normal. Platelet estimate=NORMAL 16 E03.9,E87.6,JO1.90,E78.2 17 Note: Persistent reduction for 3 months or more in an eGFR <60 mL/min/1.73 m2 defines CKD. Patients with eGFR values >/=60 mL/min/1.73 m2 may also have CKD if evidence of persistent proteinuria is present. The original MDRD equation for estimated GFR is not valid for patients less than 18 years of age. Additional information may be found at www.[email or web address]. 18 Reference Guidelines*: Desirable: ........... < 200 mg/dL Borderline High: ..... 200-239 mg/dL High: ................ >=240 mg/dL * The National Cholesterol Education Program (NCEP) 19 Reference Guidelines*: Normal: ............. < 150 mg/dL Borderline High: .... 150-199 mg/dL High: ............... 200-499 mg/dL Very High: .......... > 500 mg/dL * Source: National Cholesterol Education Program (NCEP) 20 Reference Guidelines*: Low HDL: ..... < 40 mg/dL Normal: ..... 40-60 mg/dL Desirable: ... > 60 mg/dL *The National Cholesterol Education Program(NCEP) 21 Reference Guidelines*: Optimal:........... <100 mg/dL Near Optimal....... 100-129 mg/dL Borderline High.... 130-159 mg/dL High............... 160-189 mg/dL Very High.......... >=190 mg/dL * Source: National Cholesterol Education Program (NCEP) 22 E87.6 23 E03.9,E87.6,E55.9 24 Note: Persistent reduction for 3 months or more in an eGFR <60 mL/min/1.73 m2 defines CKD. Patients with eGFR values >/=60 mL/min/1.73 m2 may also have CKD if evidence of persistent proteinuria is present. The original MDRD equation for estimated GFR is not valid for patients less than 18 years of age. Additional information may be found at www.[email or web address]. 25 Vitamin D deficiency has been defined by the [place] [employer] and an Endocrine Society practice guideline as a level of serum 25-OH vitamin D less than 20 ng/mL (1,2). The Endocrine Society went on to further define vitamin D insufficiency as a level between 21 and 29 ng/mL (2). 1. IOM ([place] of [employer]). 2010. Dietary reference intakes for calcium and D. [place]: The National Academies Press. 2. Kait Moore, Jose KANG, et al. Evaluation, treatment, and prevention of vitamin D deficiency: an Endocrine Society clinical practice guideline. JCEM. 2010; 96(7):1911-30. Performed at: [facility] [address] [id number] [place]: Savannah Linda MD, Phone: [phone] 26 Vitamin D deficiency has been defined by the [place] [employer] and an Endocrine Society practice guideline as a level of serum 25-OH vitamin D less than 20 ng/mL (1,2). The Endocrine Society went on to further define vitamin D insufficiency as a level between 21 and 29 ng/mL (2). 1. IOM ([place] of [employer]). 2010. Dietary reference intakes for calcium and D. [place]: The National Academies Press. 2. Kait Moore, Jose KANG, et al. Evaluation, treatment, and prevention of vitamin D deficiency: an Endocrine Society clinical practice guideline. JCEM. 2010; 96(7):1911-30. Performed at: [facility] [address] [id number] [place]: Savannah Linda MD, Phone: [phone] Note: Persistent reduction for 3 months or more in an eGFR <60 mL/min/1.73 m2 defines CKD. Patients with eGFR values >/=60 mL/min/1.73 m2 may also have CKD if evidence of persistent proteinuria is present. The original MDRD equation for estimated GFR is not valid for patients less than 18 years of age. Additional information may be found at www.[email or web address]. 28 Reference Guidelines*: Desirable: ........... < 200 mg/dL Borderline High: ..... 200-239 mg/dL High: ................ >=240 mg/dL * The National Cholesterol Education Program (NCEP) 29 Reference Guidelines*: Normal: ............. < 150 mg/dL Borderline High: .... 150-199 mg/dL High: ............... 200-499 mg/dL Very High: .......... > 500 mg/dL * Source: National Cholesterol Education Program (NCEP) 30 Reference Guidelines*: Low HDL: ..... < 40 mg/dL Normal: ..... 40-60 mg/dL Desirable: ... > 60 mg/dL *The National Cholesterol Education Program(NCEP) 31 Reference Guidelines*: Optimal:........... <100 mg/dL Near Optimal....... 100-129 mg/dL Borderline High.... 130-159 mg/dL High............... 160-189 mg/dL Very High.......... >=190 mg/dL * Source: National Cholesterol Education Program (NCEP) 32 Negative <1:80 Borderline 1:80 Positive >1:80 33 Negative <0.80 Equivocal 0.80 - 1.19 Positive >1.19 IgM levels may peak at 3-6 weeks post infection, then gradually decline. Performed at: RN - [facility] [address] [id number] [place]: Savannah Linda MD, Phone: [phone] QUERY: Reflex add FT3? N QUERY: Reflex add FT4? Y 35 Cytology Laboratory [address] [place] [address], [address] [place] [address] CYTOLOGY REPORT Name: Yumiko Lopez : 1960 (Age: 53) Sex: F Location: [facility] Med. Rec. # Date Collected: 09/20/2013 Billing #: [id number] Date Received: 09/20 Physician(s): ROGELIO PLEITEZ Source of Specimen: ENDOCERVICAL/ ECTOCERVICAL THIN PREP Clinical Information: Date of Last Menstrual Period: None Provided Menstrual History: Post menopausal: 15 years ago Specimen Adequacy: SATISFACTORY FOR EVALUATION. ADEQUATE ENDOCERVICAL/TRANSFORMATION ZONE. General Categorization: NEGATIVE FOR INTRAEPITHELIAL LESION OR MALIGNANCY. tyrell Electronic Signature ISELA Taylor (ASCP) Reported: 09/22/2013 Cytology [facility] ICD -9 Code(s) V72.31 36 HDL Interpretation: Undesirable: High Risk: Less than 40 mg/dL Desirable: Low Risk: Greater than 60 mg/dL 37 LDL Interpretation: Low Risk Optimal Level: LDL Less than 100 mg/dL Near or Above Optimal: LDL 100-129 mg/dL Borderline High Risk: LDL 130-159 mg/dL High Risk : LDL 160-189 mg/dL Very High Risk: LDL Greater than 189 mg/dL 38 Because ethnic data is not always readily available, this report includes an eGFR for both -Americans and non- Americans. The National Kidney Disease Education Program (NKDEP) does not endorse the use of the MDRD equation for patients that are not between the ages of 18 and 70, are , have extremes of body size, muscle mass, or nutritional status, or are non- or non-. According to the National Kidney Foundation, irrespective of diagnosis, the stage of the disease is based on the level of kidney function: Stage Description GFR(mL/min/1.73 m(2)) 1 Kidney damage with normal or decreased GFR 90 2 Kidney damage with mild decrease in GFR 60- 89 3 Moderate decrease in GFR 30-59 4 Severe decrease in GFR 15-29 5 Kidney failure <15 (or dialysis) 39 Because ethnic data is not always readily available, this report includes an eGFR for both -Americans and non- Americans. The National Kidney Disease Education Program (NKDEP) does not endorse the use of the MDRD equation for patients that are not between the ages of 18 and 70, are , have extremes of body size, muscle mass, or nutritional status, or are non- or non-. According to the National Kidney Foundation, irrespective of diagnosis, the stage of the disease is based on the level of kidney function: Stage Description GFR(mL/min/1.73 m(2)) 1 Kidney damage with normal or decreased GFR 90 2 Kidney damage with mild decrease in GFR 60- 89 3 Moderate decrease in GFR 30-59 4 Severe decrease in GFR 15-29 5 Kidney failure <15 (or dialysis) Procedures Date CPT Code Description Status 04/06/2018 80082 Event Monitor Inter/Review Only Completed 04/07/2017 09313 Bronchospasm Provocation Evaluation Multi Spirometric Completed Determinati 04/07/2017 84814 Spirometry Completed 01/12/2015 84366 Pulse Oximetry Completed 09/22/2013 16269 Mammography Unilateral Completed 09/22/2013 Mammogram Completed 03/19/2013 31852 Echocardiogram Complete Completed 03/15/2013 07023 Pulse Oximetry Completed 11/19/2012 84849 Pulse Oximetry Completed 01/21/2012 25143 Pulse Oximetry Completed 03/12/2011 44459 Pulse Oximetry Completed 03/12/2011 83054 Pressurized/Non-Pressurized Inhalation Treatment,Acute Completed Obstructio 10/05/2009 57848 Endometrial Biopsy Completed 02/14/2003 63827 Endometrial Biopsy Completed Encounters Type Date Location Provider CPT E/M Dx Office Visit 05/06/2018 9:45a Primary Care Office Rogelio Holloway 33290 J44.1 MERGED WITH [facility] J01.90 R00.2 Z71.6 Office Visit 04/02/2018 9:30a Primary Care Office Rogelio Holloway [address] R00.0 MERGED WITH [facility] J44.9 E87.6 I10 Office Visit 03/09/2018 11:00a Primary Care Office Rogelio Holloway, 18033 J44.0 RPA H69.93 E87.6 Office Visit 01/16/2018 9:20a Primary Care Office Td Salguero M.D. 27418 J44.9 J01.90 Z79.899 I10 Office Visit 12/22/2017 1:00p Primary Care Office Rogelio Holloway 51814 M79.674 RPAC R13.10 Office Visit 11/17/2017 2:30p [place] [address] J44.9 F17.210 Z71.6 E66.09 Office Visit 10/16/2017 2:30p Primary Care Office Rogelio Holloway 92696 J06.9 RPA J44.9 R79.82 Office Visit 08/21/2017 9:30a Primary Care Office Rogelio Holloway 10613 J32.9 RPAC J44.9 Office Visit 07/17/2017 10:45a Primary Care Office Rogelio Holloway 15299 J44.0 MERGED WITH [facility] B35.1 E87.6 M25.50 Office Visit 05/13/2017 2:15p [place] [address] J44.9 F17.210 Office Visit 03/25/2017 3:00p [place] [address] J44.9 F17.210 Z71.6 K21.9 Office Visit 03/19/2017 11:00a Primary Care Office Rogelio Holloway 92552 J44.1 RPAC B37.9 J32.9 Office Visit 03/06/2017 9:30a Primary Care Office Rogelio Holloway 88350 J44.1 RPAC J01.90 E03.9 E87.6 Office Visit 01/14/2017 9:45a Primary Care Office Rogelio Holloway 49895 J01.90 RPAC J44.1 F17.210 I10 Office Visit 12/31/2016 11:30a Primary Care Office Rogelio Holloway MERGED WITH [facility] 90504 R42 I10 J44.1 F17.210 Office Visit 11/27/2016 11:30a Primary Care Office Rosa Zamora, 21852 J01.90 PA-C J45.909 K13.70 Office Visit 06/04/2016 9:45a Primary Care Office Rogelio Holloway, 43529 J45.901 RPAC J20.9 Office Visit 04/04/2016 10:45a Primary Care Office Rogelio Holloway, 43945 J45.41 RPAC Office Visit 02/29/2016 9:00a Primary Care Office Rogelio Holloway, 28369 M25.519 RPA G47.9 J45.40 Office Visit 12/25/2015 11:15a Primary Care Office Rogelio Holloway, 00217 J45.41 RPAC Office Visit 10/02/2015 10:45a Primary Care Office Rogelio Holloway, 06697 J45.40 RPA R05 J01.90 B37.9 Office Visit 08/09/2015 1:00p Primary Care Office Rogelio Holloway, 44649 493.92 RPAC 269.1 276.8 Office Visit 06/05/2015 10:45a Primary Care Office Rogelio Holloway, 30238 719.48 RPA 493.92 401.1 Plan of Care Future Appointment(s):09/03/2018 10:00 am - Nurse Internal Med at [facility] Rkiekr2008/24/2018 - Rogelio Holloway, RPACH10.9 Unspecified conjunctivitisNew Medication:Pataday 0.2 %Comments:[id number] CoughNew Medication:Amoxicillin/ Clavulanate Potassium 875-125 mgGuaifenesin-Codeine 100-10 mg/5MLComments: Reference #: [id number]
[2018-09-11 16:48] VITALS: BP 157/93
[2018-09-11] MEDS ORDERED: Levalbuterol 0.63MG/3ML NEB* UNIT OF USE INH ONE (17:16)
--- NOTE | 2018-09-11 17:44 | UC ---
Respiratory Complaint HPI - HPI Summary HPI Summary: Pt c/o of wheezing, SOB that has worsened over the last 2-3 days. Pt has hx of COPD and is a current every day smoker. Pt states that she was recently switched form advair to Breo and thinks that her breathing feels "heavier" and wheezing is worse. Pt is currently taking PO augmentin. - History of Current Complaint Chief Complaint: UCRespiratory Stated Complaint: COUGH,BREATHING COMPLAINT Time Seen by Provider: 09/11/18 17:03 Hx Obtained From: Patient Hx Last Menstrual Period: 2 years ?: No Onset/Duration: Gradual Onset, Lasting Days, Still Present, Worse Since - onset Timing: Constant Severity Initially: Mild Severity Currently: Mild Pain Intensity: 1 Character: Cough: Nonproductive Aggravating Factors: Exertion, Deep Breaths, Recumbent Position Associated Signs And Symptoms: Positive: Wheezing, Nasal Congestion - Risk Factors Pulmonary Embolism Risk Factors: Smoking Cardiac Risk Factors: Smoking Pseudomonas Risk Factors: Chronic Lung Disease Tuberculosis Risk Factors: Smoking - Allergies/Home Medications Allergies/Adverse Reactions: Allergies Allergy/AdvReac Type Severity Reaction Status Date / Time morphine Allergy Hallucinati Verified 09/11/18 16:48 ons Home Medications: Home Medications Albuterol HFA INHALER* [Ventolin HFA Inhaler*] 2 puff INH Q6H PRN 09/11/18 [ History Confirmed 09/11/18] Cetirizine* [ZyrTEC 10 MG TAB*] 10 mg PO DAILY 09/11/18 [History Confirmed 09/11] Fluticasone/Vilanterol MDI(NF) [Breo Ellipta MDI 200/25(NF)] 1 puff INH DAILY [History Confirmed 09/11/18] Zifirlukast 20 mg DAILY 09/11/18 [History] PMH/Surg Hx/FS Hx/Imm Hx Previously Healthy: Yes Respiratory History: COPD - Surgical History Surgical History: Yes Surgery Procedure, Year, and Place: c sect - Family History Known Family History: Positive: Cardiac Disease - Social History Occupation: Employed Full-time Lives: With Family Alcohol Use: None Substance Use Type: None Smoking Status (MU): Current Every Day Smoker Amount Used/How Often: 1/2 PPD Length of Time of Smoking/Using Tobacco: 30 + YRS Have You Smoked in the Last Year: Yes Household Exposure Type: Cigarettes Review of Systems Constitutional: Negative Skin: Negative Eyes: Negative ENT: Negative Respiratory: Shortness Of Breath, Cough, Other - wheezing Cardiovascular: Negative Gastrointestinal: Negative Genitourinary: Negative Motor: Negative Neurovascular: Negative Musculoskeletal: Negative Neurological: Negative Psychological: Negative Is Patient Immunocompromised?: No All Other Systems Reviewed And Are Negative: Yes Physical Exam Triage Information Reviewed: Yes Appearance: Well-Appearing Vital Signs: Initial Vital Signs Temp 97.6 F 09/11/18 16:43 Pulse 105 09/11/18 16:43 Resp 18 09/11/18 16:43 BP 157/93 09/11/18 16:43 Pulse Ox 92 09/11/18 16:43 Vital Signs Reviewed: Yes Eye Exam: Normal ENT Exam: Normal Dental Exam: Normal Neck exam: Normal Respiratory: Positive: No respiratory distress, Wheezing - pt states that her baseline O2 is between 92-95 Cardiovascular Exam: Normal Cardiovascular: Positive: Tachycardia - pt states her baseline is 100, Musculoskeletal Exam: Normal Neurological Exam: Normal Psychological Exam: Normal Skin Exam: Normal UC Diagnostic Evaluation - Laboratory O2 Sat by Pulse Oximetry: 92 Respiratory Course/Dx - Differential Dx/Diagnosis Differential Diagnosis/HQI/PQRI: Bronchitis, Exacerbation Of COPD Provider Diagnoses: Exacerbation of COPD Discharge - Sign-Out/Discharge Documenting (check all that apply): Patient Departure All imaging exams completed and their final reports reviewed: No Studies - Discharge Plan Condition: Stable Disposition: HOME Prescriptions: predniSONE TAB* [Deltasone 20 MG TAB*] 20 mg PO DAILY #4 tab Patient Education Materials: Acute Bronchitis (ED) Referrals: Karis Holloway PA [Primary Care Provider] - As Soon As Possible - Billing Disposition and Condition Condition: STABLE Disposition: Home
== END 2018-09-11 17:51 | disposition home or self-care (01) ==
LOC: UCCORT 16:15
DX: J44.1 Chronic obstructive pulmonary disease with (acute) exacerbation (principal); F17.210 Nicotine dependence, cigarettes, uncomplicated; Z88.5 Allergy status to narcotic agent
CPT/HCPCS: 99212; G0463

== ENCOUNTER 2019-10-10 19:22 | Emergency (ER) | payer BC ==
[2019-10-10 19:44] VITALS: BP 137/89
[2019-10-10] MEDS ORDERED: Albuterol/Ipratropium NEB.SOL* Albuterol 2.5 MG/Ipratropium 0.5 MG 3 ML INH ONE (19:47)
--- NOTE | 2019-10-10 19:52 | UC ---
Respiratory Complaint HPI - HPI Summary HPI Summary: 59-year-old female who has had cough and wheezing over the past week. She had an initial consultation using [facility] and was started on 50 mg of prednisone daily for 5 days as well as Augmentin. She has finished the prednisone today. She states she is no better continues to be wheezy. She has a nebulizer at home which she's been using. She is a smoker and has continued to smoke. Tonight she complains of a mild sore throat as well. - History of Current Complaint Chief Complaint: UCRespiratory Stated Complaint: WHEEZING,CONGESTED, HX OF ASTHMA Time Seen by Provider: 10/10/19 19:24 Hx Obtained From: Patient Hx Last Menstrual Period: 2 years ?: No Onset/Duration: Gradual Onset Timing: Intermittent Episodes Severity Initially: Mild Severity Currently: Mild Pain Intensity: 0 Character: Cough: Nonproductive Aggravating Factors: Exertion, Deep Breaths Alleviating Factors: Nothing Associated Signs And Symptoms: Positive: Wheezing, URI, Nasal Congestion - Allergies/Home Medications Allergies/Adverse Reactions: Allergies Allergy/AdvReac Type Severity Reaction Status Date / Time morphine Allergy Hallucinati Verified 10/10/19 19:35 ons Home Medications: Home Medications Amoxicillin/Clavulanate TAB* [Augmentin TAB 875*] 1 tab BID 10/10/19 [History Confirmed 10/10/19] Fluticasone-Salmeterol 500-50* [Advair Diskus 500-50*] 1 puff BID 10/10/19 [ History Confirmed 10/10/19] Umeclidinium [place] [Incruse Ellipta] 1 puff DAILY 10/10/19 [History Confirmed 10/10/19] PMH/Surg Hx/FS Hx/Imm Hx Previously Healthy: Yes Cardiovascular History: Hypertension Respiratory History: COPD, Asthma - Surgical History Surgical History: Yes Surgery Procedure, Year, and Place: c sect - Family History Known Family History: Positive: Cardiac Disease - Social History Alcohol Use: None Substance Use Type: None Smoking Status (MU): Current Every Day Smoker Type: Cigarettes Amount Used/How Often: 1/2 PPD Length of Time of Smoking/Using Tobacco: 30 + YRS Have You Smoked in the Last Year: Yes Household Exposure Type: Cigarettes Review of Systems All Other Systems Reviewed And Are Negative: Yes ENT: Positive: Sore Throat, Nasal Discharge Respiratory: Positive: Cough - Nonproductive cough with wheezing. Is Patient Immunocompromised?: No Physical Exam Triage Information Reviewed: Yes Appearance: Well-Appearing, No Pain Distress, Well-Nourished Vital Signs: Initial Vital Signs Temp 97.9 F 10/10/19 19:37 Pulse 100 10/10/19 19:37 Resp 16 10/10/19 19:37 BP 137/89 10/10/19 19:37 Pulse Ox 95 10/10/19 19:37 Vital Signs Reviewed: Yes Eyes: Positive: Conjunctiva Clear ENT: Positive: Hearing grossly normal, Pharyngeal erythema - The posterior next appears to have a thrush-like appearance with erythema., Nasal congestion, Nasal drainage, TMs normal, Uvula midline Neck: Positive: Supple, Nontender, No Lymphadenopathy Respiratory: Positive: No respiratory distress, No accessory muscle use, Rhonchi , Wheezing - Scattered rhonchi and wheezing throughout. Cardiovascular: Positive: RRR, No Murmur, Pulses Normal, Brisk Capillary Refill Musculoskeletal Exam: Normal Neurological Exam: Normal Psychological Exam: Normal Skin Exam: Normal Respiratory Course/Dx - Course Course Of Treatment: DuoNeb treatment: Patient feels like she has mildly decreased wheezing with increased air movement. Chest x-ray: Negative Patient refuses Tessalon Perles as a prescription. She is to continue the prednisone taper as directed. She is to continue her albuterol nebulizer at home every 4 hours as needed for wheezing. Definite follow-up with her primary care provider if no improvement in 2 or 3 days. I'm treating her with fluconazole 200 mg the first day then 100 mg daily for oral thrush, which more than likely is the result of her antibiotic usage. - Differential Dx/Diagnosis Provider Diagnosis: Bronchitis, Thrush, oral Discharge ED - Sign-Out/Discharge Documenting (check all that apply): Patient Departure All imaging exams completed and their final reports reviewed: No - Discharge Plan Condition: Fair Disposition: HOME Prescriptions: Fluconazole 100 MG TAB* [Diflucan 100 MG TAB*] 100 mg PO DAILY 7 Days #8 tab predniSONE TAB* [Deltasone 10 MG TAB*] 10 mg PO DAILY 12 Days #30 tab Patient Education Materials: Oral Candidiasis (ED), Acute Bronchitis (ED) Referrals: Karis Holloway PA [Primary Care Provider] - Additional Instructions: Increase fluids, use your albuterol nebulizer at home every 4 hours as needed for wheezing, take the prednisone with food. Definite follow-up with your primary care provider in 2 or 3 days if no improvement. Take the fluconazole 200mg the first day and then 100 mg next 7 days. - Billing Disposition and Condition Condition: FAIR Disposition: Home - Attestation Statements Provider Attestation: Per institutional requirements, I have reviewed the chart, however, I was not consulted specifically or made aware of this patient by the midlevel provider. I did not personally evaluate, interact with , or disposition this patient.
--- NOTE | 2019-10-11 17:12 | UC ---
- Progress Note Progress Note: Final radiologist reading of chest x-ray from October 10, 2019 is read as no infiltrate. Provider interpretation of the same use same therefore there is no discrepancy. Course/Dx - Diagnoses Provider Diagnoses: Bronchitis, Thrush, oral Discharge ED - Sign-Out/Discharge Documenting (check all that apply): Patient Departure All imaging exams completed and their final reports reviewed: Yes - Discharge Plan Condition: Fair Disposition: HOME Prescriptions: Fluconazole 100 MG TAB* [Diflucan 100 MG TAB*] 100 mg PO DAILY 7 Days #8 tab predniSONE TAB* [Deltasone 10 MG TAB*] 10 mg PO DAILY 12 Days #30 tab Patient Education Materials: Oral Candidiasis (ED), Acute Bronchitis (ED) Referrals: Karis Holloway PA [Primary Care Provider] - Additional Instructions: Increase fluids, use your albuterol nebulizer at home every 4 hours as needed for wheezing, take the prednisone with food. Definite follow-up with your primary care provider in 2 or 3 days if no improvement. Take the fluconazole 200mg the first day and then 100 mg next 7 days. - Billing Disposition and Condition Condition: FAIR Disposition: Home
== END 2019-10-10 20:26 | disposition home or self-care (01) ==
LOC: UCCORT 19:22
DX: J44.9 Chronic obstructive pulmonary disease, unspecified (principal); B37.0 Candidal stomatitis; I10 Essential (primary) hypertension; Z88.5 Allergy status to narcotic agent; F17.210 Nicotine dependence, cigarettes, uncomplicated
CPT/HCPCS: 71046; 99212; A9270-GY; G0463